=== PATIENT | male | born 1990 | race African-American/Black ===

== ENCOUNTER 2016-10-18 16:49 | Emergency (ER) | payer OTHER ==
[~2016-10-18] VITALS: Ht 177.8 cm; Wt 65.3 kg
== END 2016-10-18 17:55 | disposition home or self-care (01) ==
LOC: CFTX 16:49 → CED 16:49 → CFTX 17:41
DX: L02.412 Cutaneous abscess of left axilla (principal)
CPT/HCPCS: 10060; 87070; 87077; 87186; 87205; 99283

== ENCOUNTER 2016-10-21 15:34 | Emergency (ER) | payer OTHER | END 2016-10-21 16:09 | disposition home or self-care (01) | LOC: CED 15:34 | DX: Z48.01 Encounter for change or removal of surgical wound dressing (principal) | CPT/HCPCS: 99282 ==

== ENCOUNTER 2016-10-24 19:23 | Emergency (ER) | payer OTHER ==
[~2016-10-24] VITALS: Ht 177.8 cm; Wt 65.3 kg
== END 2016-10-24 22:11 | disposition home or self-care (01) ==
LOC: CFTX 19:23 → CED 19:23 → CFTX 22:08
DX: L02.412 Cutaneous abscess of left axilla (principal)
CPT/HCPCS: 99283

== ENCOUNTER 2016-10-26 20:49 | Emergency (ER) | payer OTHER ==
[~2016-10-26] VITALS: Ht 180.3 cm; Wt 65.8 kg
== END 2016-10-27 00:44 | disposition home or self-care (01) ==
LOC: CFTX 20:49 → CED 20:49 → CFTX 23:13
DX: L02.412 Cutaneous abscess of left axilla (principal)
CPT/HCPCS: 10060; 99283

== ENCOUNTER 2016-10-28 18:50 | Emergency (ER) | payer OTHER ==
[~2016-10-28] VITALS: Ht 177.8 cm; Wt 65.8 kg
== END 2016-10-28 20:41 | disposition home or self-care (01) ==
LOC: CFTX 18:50 → CED 18:50 → CFTX 20:17
DX: Z48.817 Encounter for surgical aftercare following surgery on the skin and subcutaneous tissue (principal)
CPT/HCPCS: 99282